=== PATIENT | female | born 1980 | race Two or more races ===

== ENCOUNTER 2025-01-11 16:24 | Inpatient (IN) | payer MEDICAID, SELFPAY ==
[2025-01-11] VITALS (10 sets, daily range): BP systolic 131–171; BP diastolic 78–112; PULSE 79–94; RESP 15–99; TEMP 36.4–36.5; O2SAT 96–99; BMI 31.3
--- NOTE | 2025-01-11 16:33 | PC.NURSE ---
STROKE ALERT INITIATED AND TELESPECIALIST ACTIVATED CONF # [id number]
--- NOTE | 2025-01-11 16:34 | XR_ITS ---
Examination: CTA carotids with intravenous contrast CTA brain, head with intravenous contrast. 2-D sagittal, coronal reconstructions. 3-D reconstructions. Exam date and time: January 11, 2025 at 1555 hrs. Indications: Stroke alert, onset focal neurologic deficit today. CTDI: vol (mGy) 31.5. DLP: (mGycm) 141 Technique: Multiple CTA axial brain, head carotid images post intravenous contrast injection 75 cc, [id number]. 2-D sagittal, coronal reconstructions. 3-D reconstructions, 3-D post processing including vascular maximum intensity projection images. Low dose protocols were performed. One or more of the following dose reduction techniques were used; automated exposure control, adjustment of the mA and/or KV according to patient size, use of iterative reconstruction technique. Findings: No significant common carotid carotid bifurcation or internal carotid artery stenoses Mildly dominant right vertebral artery in the neck with no critical stenoses. No cerebral large vessel arterial occlusions or thrombus Possible 70% stenosis proximal P1 segment left posterior cerebral artery Impression: No significant neck arterial stenoses No cerebral large vessel arterial occlusions. Suspicious for 70% stenosis proximal P1 segment left posterior cerebral artery
--- NOTE | 2025-01-11 16:34 | EKG_ITS ---
[facility] Test Date: 2025-01-11 Pat Name: BELGICA GARRETT Department: Room: - Gender: Female Service Tech: : 1980 Requested By: Kaci Barnes Order Number: [id number] Reading MD: Kaci Barnes Measurements Intervals [place] Rate: 75 P: 43 RI: 168 QRS: 15 QRSD: 89 T: 41 QT: 407 QTc: 456 Interpretive Statements SINUS RHYTHM POSSIBLE LEFT ATRIAL ENLARGEMENT [-0.1mV P-WAVE IN V1/V2] No previous ECG available for comparison /store/S0/[id number].pdf
--- NOTE | 2025-01-11 16:34 | XR_ITS ---
Examination: AP chest single view. Technique: Portable AP upright chest single view Date and time: January 11, 2025, 1737 hrs. Indications: Stroke alert, onset focal neurologic deficit today. Findings: Normal heart size. No aspiration pneumonia. The osseous structures are intact. Impression: No aspiration pneumonia.
--- NOTE | 2025-01-11 16:34 | XR_ITS ---
Examination: CT brain head without contrast. 2-D sagittal coronal reconstructions Date and time of exam:January 11, 2025, 1639 hours INDICATIONS: Stroke alert, slurred speech onset focal neurologic deficit today. CTDI: vol (mGy):49.9 DLP: (mGycm):968 Technique: Multiple CT axial sections of the brain have been obtained, 5 mm slice thickness. Contrast has not been administered. 2-D sagittal, coronal reconstructions have been obtained Low dose protocols were performed. One or more of the following dose reduction techniques were used; automated exposure control, adjustment of the mA and/or KV according to patient size, use of iterative reconstruction technique. Findings: Subtle low density in the left temporal lobe suspicious for early nonhemorrhagic acute infarct in distribution of the left middle cerebral artery. Ventricles are normal in size No mass effect upon the ventricular system No acute hemorrhage Cranial vault is intact IMPRESSION: Suspicious for early acute nonhemorrhagic infarct in left middle cerebral artery distribution
--- NOTE | 2025-01-11 16:35 | PD.EDADULT ---
ED General RME/HPI General Chief complaint: General Adult/Misc Complain Stated complaint: SLURRED SPEECH, CROSSED VISION, LKW 15:50 Time Seen by Provider: 01/11/25 16:34 Arrival date/time: 01/11/25 16:24 RME / HPI RME / HPI narrative: 44-year-old female patient with no past medical history, denies any drug abuse, was brought in by for evaluation regarding sudden onset of slurred speech, crossed eye vision, dizziness, headache, and unstable gait, severity moderate. Last well-known time 3:50 PM today. Patient almost sustained a fall however the was able to catch her. Denies any other complaints. Patient does not take any blood thinner. Related Data Allergies Allergy/AdvReac Type Severity Reaction Status Date / Time No Known Allergies Allergy Verified 01/11/25 17:20 Review of Systems Review of Systems Narrative Review of Systems: Review of system reviewed and within normal limits except mentioned in HPI ED Exam Narrative Physical exam: VITAL SIGNS: Reviewed. GENERAL APPEARANCE: Alert and interactive, follows commands, no acute distress, slight slurring of speech noted, unstable gait HEAD AND FACE: Non-traumatic. ENT: PERRL, pink conjunctivitis, eyelid no trauma, Mucous membrane moist., Full range of motion of the extraocular muscle bilateral NECK: Supple, nontender, no nuchal rigidity. CHEST: No tenderness, no crepitus, no paradoxical movement, no retractions. LUNGS: Clear, well ventilated, symmetric, no rales, no wheezing, no ronchi, no stridor, good breath sounds bilaterally. HEART: Regular rate, regular rhythm, no murmur, no gallops. ABDOMEN: Soft, positive bowel sounds, nondistended, no guarding, nontender, no rebound, no masses, RECTAL: Deferred. GENITAL: Deferred. NEUROLOGICAL: Gross motor function intact sensory function intact, Appropriate for age. MUSCULOSKELETAL: low back nontender, full range of motion. EXTREMITIES: Nontender, full range of motion. SKIN: Color pink, dry, no rash, no lacerations, no abrasions, no contusions. LYMPHATICS: Deferred. Course Quality Measures none Orders Category Date Time Status Bedside Blood Glucose NOW Care 01/11/25 16:34 Active COVID-19 Screening Questionnaire NOW Care 01/11/25 20:04 Active Blue Split Trimmer NOW Care 01/11/25 16:34 Active Continuous Pulse Oximetry NOW Care 01/11/25 16:34 Completed Decision to Admit X1 Care 01/11/25 20:04 Active EKG (ED ONLY) *Do not use* NOW Care 01/11/25 16:34 Completed In and Out Catheter NEEDED Care 01/11/25 16:34 Active Insert IV NOW Care 01/11/25 16:34 Active NIH Stroke Scale now Care 01/11/25 16:34 Active NPO NOW Care 01/11/25 16:34 Active Nurse Swallow Screen x1 Care 01/11/25 16:34 Active Consult to Neurology / Tele-Neurology Routine Cons 01/11/25 16:[address] angio stroke protocol Stat Exams 01/11/25 16:[address] stroke protocol Stat Exams 01/11/25 16:34 Completed EKG (ED Only) Stat Exams 01/11/25 16:34 Draft XR chest 1V portable Stat Exams 01/11/25 16:34 Completed CBC Stat Lab 01/11/25 16:43 Completed Comprehensive Metabolic Panel Stat Lab 01/11/25 16:43 Completed Drug Screen,Urine Stat Lab 01/11/25 16:34 Ordered HCG Titer if Positive Stat Lab 01/11/25 16:43 Completed Magnesium Stat Lab 01/11/25 16:43 Completed Partial Thromboplastin Time Stat Lab 01/11/25 16:43 Completed Prothrombin Time with INR Stat Lab 01/11/25 16:43 Completed Troponin I Stat Lab 01/11/25 16:43 Completed Urinalysis, C/S if Indicated Stat Lab 01/11/25 16:34 Ordered Aspirin Med 01/11/25 17:21 Discontinued 325 mg PO X1 ONE Labetalol IV [Trandate IV] Med 01/11/25 16:34 Active 10 mg IVP Q15M PRN Ondansetron Inj [Zofran Inj] Med 01/11/25 16:34 Active 4 mg IVP Q4HR PRN Oxygen Delivery NOW RT 01/11/25 16:34 Active Vital Signs Vital signs: Vital Signs Pulse Rate 87 01/11/25 16:36 Blood Pressure 171/110 H 01/11/25 16:36 Pulse Oximetry (%) 97 01/11/25 16:36 Oxygen Delivery Method Room Air 01/11/25 16:36 Discharge Plan Plan Patient Disposition: Admit Acute Care w/in Hospital Discharge Disposition comment: Stable Prescriptions/Referrals Referrals: No Primary/Family,Physician [Primary Care Provider] - In 1 week Problem List Clinical Impression: Stroke-like symptoms Patient/Caregiver Discharge Instructions Print Language: Tajik Stand Alone Forms: [facility] Award Info., Patient Portal Info Letter MDM Narrative [facility] hospital course: 44-year-old female patient with no past medical history, denies any drug abuse, was brought in by for evaluation regarding sudden onset of slurred speech, crossed eye vision, dizziness, headache, and unstable gait, severity moderate. Last well-known time 3:50 PM today. Patient almost sustained a fall however the was able to catch her. Denies any other complaints. Patient does not take any blood thinner. Stroke alert was initiated at 4:33 PM. EKG showed sinus rhythm, ventricular to 75 bpm, no ST segment elevation or depression. I spoke with teleneurologist, who recommend TNKase however patient and family refused treatment. Patient was given aspirin 325 mg p.o. x [address] scan of the head came back possible infarct, CT angiogram of the head and neck showed suspicious for P1 segment stenosis. Results discussed with the family and patient. Patient is currently verbalizing significant improvement of symptoms. Spoke with hospitalist who admitted the patient Medication Administration(s) Medication Administration History Labetalol HCl (Labetalol Inj 5 Mg/Ml Vial 20 Ml) 10 mg IVP Q15M PRN PRN Reason: SBP>= 180, DBP >=105 Ondansetron HCl (Ondansetron Inj 2 Mg/Ml Inj 2 Ml) 4 mg IVP Q4HR PRN PRN Reason: NAUSEA OR VOMITING Stop: 02/10/25 16:33 Discontinued Medications Aspirin (Aspirin 325 Mg Tablet) 325 mg PO X1 ONE Stop: 01/11/25 17:22 Last Admin: 01/11/25 17:29 Dose: 325 mg Documented By: CHENG Dispositon Disposition: Admit
[2025-01-11 16:58] LABS: Basophils # (Auto) 0.0 Thou/mm3 (0.0-0.2); Basophils % (Auto) 0 % (0-2.5); Eosinophils # (Auto) 0.1 Thou/mm3 (0.0-0.5); Eosinophils % (Auto) 1 % (0-10); Hematocrit 40.4 % (36.0-46.0); Hemoglobin 13.2 g/dL (12.0-16.0); Immature Granulocytes Auto 0.02 Thou/mm3 (0.00-0.00); Lymphocytes # (Auto) 3.7 Thou/mm3 (1.0-4.8); Lymphocytes % (Auto) 43 % (10-50); Mean Corpuscular HGB Conc 32.7 g/dl (31.0-37.0); Mean Corpuscular Hemoglobin 28.6 pg (25.0-35.0); Mean Corpuscular Volume 87 fL (80-100); Monocytes # (Auto) 0.5 Thou/mm3 (0.0-0.8); Monocytes % (Auto) 6 % (0-12); Neutrophils # (Auto) 4.4 Thou/mm3 (1.8-7.7); Neutrophils % (Auto) 50 % (37-80); Nucleated Red Blood Cell # 0.00 Thou/mm3 (0.00-0.00); Nucleated Red Blood Cell % 0 /100 WBC (0); Platelet Count 449 Thou/mm3 (140-440); RDW Standard Deviation 47.1 fL (36.4-46.3); Red Blood Count 4.62 Miln/mm3 (4.00-5.20); White Blood Count 8.8 Thou/mm3 (3.6-11.0)
--- NOTE | 2025-01-11 17:00 | PC.NURSE ---
DR. DAISY RAMIRES, TELENEUROLOGIST, INFORMED PT THAT SHE IS A CANDIDATE FOR TNK AT THIS TIME; PT REPORTED, I CAN'T FOCUS RIGHT NOW. PT ASKED IF SHE WOULD LIKE ANY FAMILY MEMBER TO TALK TO; PT REPLIED, YES, CALL MY MOM. PT'S MOTHER CALLED AT THIS TIME AND WAS MADE AWARE OF PT'S PLAN OF CARE BY DR. DAISY RAMIRES, WITH PT'S CONSENT. PT'S MOTHER REPLIED, I CAN'T JUST SAY YES TO A MEDICATION FOR HER. I NEED TO TALK TO MY DAUGHTER. PHONE HANDED TO PT; PT SPOKE TO MOM OVER THE PHONE. PT ASKED AGAIN IF SHE WOULD LIKE TO RECEIVE TNK AT THIS TIME. PT REFUSING; PT A&OX4, GCS 15. PROVIDER KRISTOPHER PAULINO MADE AWARE.
[2025-01-11 17:11] LABS: HCG Titer if Positive Negative
[2025-01-11 17:24] LABS: INR 0.9 (0.9-1.3); Partial Thromboplastin Time 20.5 Seconds (22.0-36.0); Prothrombin Time 10.2 Seconds (9.0-12.2)
--- NOTE | 2025-01-11 17:37 | PD.NEUROCONS ---
History of Present Illness Consult Narrative cc:: cc: Meds Home Medications and Allergies Allergies Allergy/AdvReac Type Severity Reaction Status Date / Time No Known Allergies Allergy Verified 01/11/25 17:20 Exam - Neurology Vital Signs Pulse Resp BP Pulse Ox O2 Del Method 79 15 171/110 H 97 Room Air 01/11/25 16:45 01/11/25 16:45 01/11/25 16:36 01/11/25 16:36 01/11/25 16:36 Results Labs 01/11/25 16:43 01/11/25 16:43 Impressions Impression: [facility] Patient Name:???BELGICA GARRETT Date of :???1980 Identification Number:??? Date of Service:???01/11/2025 16:35:22 Diagnosis:?R26.81 - Unsteady gait ?R42 - Dizziness/ Vertigo/ Giddiness Impression: ?Pt is a 44 yo female with no significant past medical history who presents to the ED with dizziness described as difficulty focusing with her vision and unsteady gait since 15:50. NIHSS was 1 for diminished sensation of her right arm and leg although pt was unsteady walking. Since there were no contraindications to iv-thrombolytics, the role of TNK in acute stroke as well as the risks and benefits were discussed with the patient. Pt was extremely anxious and requested to speak to her mother over the phone regarding TNK. Ultimately, after speaking to her mother, the patient declined TNK due to concern about the risks. PT also stated she wanted to go home, but then agreed to stay for an MRI brain to rule out any stroke. CTA head and neck showed no obvious large vessel occlusion and so pt was not a candidate for mechanical thrombectomy, but will follow-up with the final results.? ? ?Recommend stroke work-up with a routine MRI brain without contrast, telemetry, TTE with bubble study (if MRI brain shows a stroke), lipid panel, hemoglobin AIC. ? ?Can start pt on ASA 81 mg daily once the pt passes a dysphagia screen while waiting for work-up to be completed. ? Our recommendations are outlined below. Recommendations: ? Stroke/Telemetry Floor ? Neuro Checks (Q4) ? Bedside Swallow Eval ? DVT Prophylaxis ? IV Fluids, Normal Saline ? Head of Bed 30 Degrees ? Euglycemia and Avoid Hyperthermia (PRN Acetaminophen) ? Initiate or continue Aspirin 81 MG daily ?MRI brain without contrast ?TTE with bubble study (If MRI brain shows a stroke) ?Lipid panel ?Hemoglobin AIC?PT/OT Sign Out: ? Discussed with Emergency Department Provider Advanced Imaging: CTA Head and Neck Completed. LVO:No Patient is not a candidate for DANIELLE Metrics: Last Known Well: 01/11/2025 13:50:00 Dispatch Time: 01/11/2025 16:35:22 Arrival Time: 01/11/2025 16:34:00 Initial Response Time: 01/11/2025 16:39:15Symptoms: Dizziness. . Initial patient interaction: 01/11/2025 16:41:14 NIHSS Assessment Completed: 01/11/2025 16:47:22Patient is not a candidate for Thrombolytic. Thrombolytic Medical Decision: 01/11/2025 17:04:30Patient was not deemed candidate for Thrombolytic because of following reasons: Patient/Family declined . CT Head: I personally reviewed all the CT images that were available to me and it showed: No acute ischemic change, no ICH Primary Provider Notified of Diagnostic Impression and Management Plan on: 01/11/2025 17:21:50 History of Present Illness:Patient is a 44 year old Female. Patient was brought by private transportation with symptoms of Dizziness. . Pt is a 44 yo female with no significant past medical history who presents to the ED with dizziness. PT states that she was driving at around 15:50 when she suddenly felt dizzy like she could not focus her eyes. She denies any actual double vision, blurred vision or spinning sensation. She felt unsteady walking but had no unilateral wekaness or numbness. No nausea. No change in speech Past Medical History: ?There is no history of Hypertension ?There is no history of Diabetes Mellitus ?There is no history of Hyperlipidemia ?There is no history of Atrial Fibrillation ?There is no history of Coronary Artery Disease ?There is no history of Stroke Medications: No Anticoagulant use? No Antiplatelet use Reviewed EMR for current medications Allergies:? NKDA Social History: Smoking: No Family History: There is no family history of premature cerebrovascular disease pertinent to this consultation ROS : 14 Points Review of Systems was performed and was negative except mentioned in HPI. Past Surgical History: There Is No Surgical History Contributory To Today?s Visit Examination: BP(152/95),?Pulse(89),?Blood Glucose(127) 1A: Level of Consciousness - Alert; keenly responsive?+ 0 1B: Ask Month and Age - Both Questions Right?+ 0 1C: Blink Eyes & Squeeze Hands - Performs Both Tasks?+ 0 2: Test Horizontal Extraocular Movements - Normal?+ 0 3: Test Visual Ricci - No Visual Loss?+ 0 4: Test Facial Palsy (Use Grimace if Obtunded) - Normal symmetry?+ 0 5A: Test Left Arm Motor Drift - No Drift for 10 Seconds?+ 0 5B: Test Right Arm Motor Drift - No Drift for 10 Seconds?+ 0 6A: Test Left Leg Motor Drift - No Drift for 5 Seconds?+ 0 6B: Test Right Leg Motor Drift - No Drift for 5 Seconds?+ 0 7: Test Limb Ataxia (FNF/Heel-Greco) - No Ataxia?+ 0 8: Test Sensation - Mild-Moderate Loss: Less Sharp/More Dull?+ 1 9: Test Language/Aphasia - Normal; No aphasia?+ 0 10: Test Dysarthria - Normal?+ 0 11: Test Extinction/Inattention - No abnormality?+ 0 NIHSS Score:?1 NIHSS Free Text :?NIHSS was 1 for diminished sensation of her right arm and leg. ?Pt was able to from the wheelchair tot he stretcher but was unsteady walking. ?No nystagmus, extraocular movements were intact. Pre-Morbid Modified [place] Scale: 0 Points = No symptoms at all Spoke with :?FANTA Duran This consult was conducted in real time using interactive audio and video technology. Patient was informed of the technology being used for this visit and agreed to proceed. Patient located in hospital and provider located at home/office setting. Patient is being evaluated for possible acute neurologic impairment and high probability of imminent or life-threatening deterioration. I spent total of 41 minutes providing care to this patient, including time for face to face visit via telemedicine, review of medical records, imaging studies and discussion of findings with providers, the patient and/or family. Dr Reanna Rico [facility] For Inpatient follow-up with [facility] physician please call [facility] at . As we are not an outpatient service for any post hospital discharge needs please contact the hospital for assistance. If you have any questions for the [facility] physicians or need to reconsult for clinical or diagnostic changes please contact us via [facility] at . Signature :Eric Rico
[2025-01-11 17:59] LABS: Alanine Aminotransferase 16 U/L (10-49); Albumin, Serum 4.6 gm/dL (3.5-5.0); Albumin/Globulin Ratio 1.9 (1.2-2.2); Alkaline Phosphatase 78 U/L (46-116); Anion Gap 10 (7-16); Aspartate Amino Transferase 17 U/L (0-34); BUN/Creatinine Ratio 11 Ratio (12-20); Bilirubin,Total 0.3 mg/dL (0.3-1.2); Blood Urea Nitrogen 9 mg/dL (9-23); Calcium 9.3 mg/dL (8.3-10.6); Calcium (Corrected) 9.3 mg/dL (8.5-10.1); Carbon Dioxide 27.1 mMol/L (20.0-31.0); Chloride 106 mMol/L (98-107); Creatinine (Component) 0.8 mg/dL (0.6-1.3); Estimated Creatinine Clearance 100.3 mL/min (>60); Globulin 2.4 gm/dL (2.3-3.5); Glucose 124 mg/dL (74-106); Magnesium 2.5 mg/dL (1.6-2.6); Osmolality,Calculated 284 (275-295); Potassium 3.4 mMol/L (3.4-5.1); Sodium 143 mMol/L (136-145); Total Protein 7.0 gm/dL (5.7-8.2); Troponin I < 0.002 ng/mL (0.0-0.045); eGFR > 60 See Note
--- NOTE | 2025-01-11 20:44 | ECHO_ITS ---
Transthoracic Echo Report Ht (in): 66 Wt (lb): 194 Exam Location: Echo Lab Status: Emergency Canary Raiser: Richa Fay Indications: Procedure Performed: BP: 139 / 98 HR: 83 MEASUREMENTS (Male / Female) Normal Values 2D ECHO LV Diastolic Diameter PLAX 4.1 cm 4.2 - 5.9 / 3.9 - 5.3 cm LV Systolic Diameter PLAX 2.6 cm IVS Diastolic Thickness 1.0 cm 0.6 - 1.0 / 0.6 - 0.9 cm LVPW Diastolic Thickness 1.0 cm 0.6 - 1.0 / 0.6 - 0.9 cm LV Relative Wall Thickness 0.5 LVOT Diameter 1.9 cm LA Volume Index 23.0 cm?/m? 16 - 28 cm?/m? Ascending Aorta Diameter 3.0 cm M-MODE AV Cusp Separation MM 1.6 cm DOPPLER AV Peak Velocity 144.0 cm/s AV Peak Gradient 8.3 mmHg AV Mean Gradient 5.0 mmHg AV Velocity Time Integral 28.8 cm LVOT Peak Velocity 119.0 cm/s LVOT Peak Gradient 5.7 mmHg LVOT Velocity Time Integral 22.9 cm LVOT Cardiac Index 2624.6 cm?/min?m? AV Area Cont Eq vti 2.3 cm? AV Area Cont Eq pk 2.3 cm? MV Area PHT 4.6 cm? Mitral E Point Velocity 97.0 cm/s Mitral A Point Velocity 106.0 cm/s Mitral E to A Ratio 0.9 LV E' Lateral Velocity 9.4 cm/s Mitral E to LV E' Lateral Ratio 10.4 LV E' Septal Velocity 7.8 cm/s Mitral E to LV E' Septal Ratio 12.4 TR Peak Velocity 191.0 cm/s TR Peak Gradient 14.6 mmHg PV Peak Velocity 104.0 cm/s PV Peak Gradient 4.3 mmHg FINDINGS Left Ventricle Normal left ventricular size, wall thickness, systolic function with no obvious regional wall motion abnormalities. Normal left ventricular diastolic filling pattern for age. The ejection fraction is visually estimated at 60-65 %. Right Ventricle Normal Right ventricular size and function. Left Atrium The left atrium is normal by two-dimensional, color flow and Doppler imaging with no structural abnormalities, no thrombus formation present. Right Atrium The right atrium is normal by two-dimensional imaging, color flow and Doppler imaging with no structural abnormalities, no thrombus formation present. Atrial Septum No patent foramen ovale demonstrated by agitated saline injection. Aorta The aorta is normal by two-dimensional, color flow and Doppler interrogation. Mitral Valve The mitral valve is normal by two-dimensional, color flow and Doppler interrogation. There is no significant mitral valve regurgitation, stenosis or prolapse. Aortic Valve The aortic valve is trileaflet and normal by two-dimensional, color flow and Doppler interrogation. There is no significant aortic valve regurgitation. Tricuspid Valve The tricuspid valve is normal by two-dimensional, color flow and Doppler interrogation. There is trace tricuspid valve regurgitation. Pulmonic Valve The pulmonic valve is not well visualized. There is no significant pulmonic valve regurgitation. Vessels The pulmonary artery appears normal. The inferior vena cava pulmonary and hepatic veins appear normal. Pericardium The pericardium is normal by two-dimensional imaging. There is no significant pericardial effusion. CONCLUSIONS Indication: stroke/bubble study Normal left ventricular size and function. Approximate ejection fraction is 60- 65%. Normal Right ventricular size and function. No patent foramen ovale demonstrated by agitated saline injection. Trace ELLEN Masters (Electronically Signed) Final Date: 12 January 2025 17:43
--- NOTE | 2025-01-11 21:15 | ESHP_ITS ---
<Statement entered by Korey Franks MD - 01/12/25 02:42> I have discussed and was present for the essential components of the history, physical examination, diagnosis, and treatment plan with the resident. I agree with the patient's care as documented by the resident and amended herein by me. Korey Franks MD FACP. Documentation for date of: 01/11/25 HPI History of Present Illness Chief complaint: Dizziness, slurred speech, visual disturbance History of present illness: 44-year-old female with no significant past medical history presented after a sudden episode while driving at 15:50. She reported sudden dizziness, slurred speech, visual disturbance described as her ?eyes bouncing around,? associated with clamminess, sweating, and feeling pale. She pulled over and her boyfriend drove; they later stopped at a store where she continued to feel dizzy and unsteady, nearly collapsing but denied loss of consciousness or fainting as her boyfriend caught her. Symptoms partially improved but she continues to have difficulty focusing her vision, headache, and left-sided decreased sensation with mild facial droop. She denies chest pain, weakness, syncope, or seizure activity. She is not on medications or blood thinners and declined TNK after risks/benefits were discussed. ED Course: Stroke alert activated on arrival. CT head showed no acute hemorrhage, possible subtle infarct in left MCA distribution. CTA head/neck showed no LVO, with 70% stenosis of left [employer] (P1). Neurology consulted, recommended TNK, but patient declined after discussion. Given aspirin 325 mg PO. Vitals notable for hypertension (171/110), otherwise stable. Admitted to stroke/telemetry for further work-up. ROS * Neuro: + dizziness, headache, visual disturbance, slurred speech, left-sided sensory change. No loss of consciousness, seizures, or focal weakness. * Cardio: No chest pain, palpitations, or syncope. * Pulm: Mild shortness of breath during episode, now resolved. * GI: No nausea, vomiting, abdominal pain. * : No dysuria. * General: [place] clammy and sweaty at onset, no fevers or chills. PMH: * None reported PSH: * 3 prior C-sections Medications: * None prescribed; occasional OTC vitamin gummies Allergies: * NKDA Family History: * Noncontributory for stroke/ME per patient Social History: * Vapes regularly * Denies alcohol use except rare, no illicit drugs * Lives with boyfriend, independent at baseline Exam Vital Signs Temp Pulse Resp BP Pulse Ox O2 Del Method 97.7 F 91 16 156/112 H 97 Room Air 01/11/25 18:39 01/11/25 21:08 01/11/25 21:08 01/11/25 21:08 01/11/25 21:08 01/11/25 21:08 Narrative Exam Gen: Alert, conversant, mild distress due to dizziness Neuro: Mild slurred speech. Cranial nerves: slight left facial droop, decreased sensation left face; strength 5/5 throughout; sensation reduced LUE/LLE; coordination intact (FNF, heel-denson normal), gait deferred. HEENT: PERRL, EOMI, mucous membranes moist CV: RRR, grade II/ systolic murmur, no gallops Pulm: Clear to auscultation bilaterally Abd: Soft, nontender, nondistended Ext: No edema, full ROM Skin: Warm, dry Results: Labs 01/11/25 16:43 01/11/25 16:43 Labs: Short CBC 01/11/25 Range/Units 16:43 WBC 8.8 (3.6-11.0) Thou/mm3 Hgb 13.2 (12.0-16.0) g/dL Hct 40.4 (36.0-46.0) % Plt Count 449 H (140-440) Thou/mm3 BMP 01/11/25 16:43 Sodium 143 Potassium 3.4 Chloride 106 Carbon Dioxide 27.1 BUN 9 Creatinine 0.8 Glucose 124 H Calcium 9.3 Cardiac Enzymes 01/11/25 Range/Units 16:43 Troponin I < 0.002 (0.0-0.045) ng/mL Liver Function 01/11/25 Range/Units 16:43 Total Bilirubin 0.3 (0.3-1.2) mg/dL AST 17 (0-34) U/L ALT 16 (10-49) U/L Alkaline Phosphatase 78 (46-116) U/L Albumin 4.6 (3.5-5.0) gm/dL Quality Measures Quality Measures VTE prophylaxis Medications Home Medications and Allergies Allergies Allergy/AdvReac Type Severity Reaction Status Date / Time No Known Allergies Allergy Verified 01/11/25 17:20 Visit Medications Acetaminophen (Acetaminophen 325 Mg Tablet) 650 mg PO Q6H PRN PRN Reason: Fever >100.4 Stop: 02/10/25 20:42 Acetaminophen (Acetaminophen 325 Mg Tablet) 650 mg PO Q6H PRN PRN Reason: PAIN SCALE 1-3 (mild Stop: 02/10/25 20:42 Aspirin (Aspirin Ec 81 Mg Tabec) 81 mg PO QDAY [facility] Stop: 02/11/25 08:59 Atorvastatin Calcium (Atorvastatin Calcium 20 Mg Tablet) 80 mg PO HS [facility] Stop: 02/10/25 21:14 Labetalol HCl (Labetalol Inj 5 Mg/Ml Vial 20 Ml) 10 mg IVP Q15M PRN PRN Reason: SBP>= 180, DBP >=105 Morphine Sulfate (Morphine Sulf Inj 4 Mg/Ml Vial) 1 mg IVP Q4HR PRN PRN Reason: PAIN SCALE 7-10 (Severe Stop: 01/16/25 20:42 Ondansetron HCl (Ondansetron Inj 2 Mg/Ml Inj 2 Ml) 4 mg IVP Q6H PRN; Protocol PRN Reason: NAUSEA OR VOMITING Stop: 02/10/25 20:42 Oxycodone/Acetaminophen (Oxycodone/Apap 5/325 Tablet) 1 tab PO Q6H PRN PRN Reason: PAIN SCALE 4-6 (Moderate Stop: 01/16/25 20:42 Pantoprazole Sodium (Pantoprazole 40 Mg Tablet) 40 mg PO QDAY [facility] Stop: 02/11/25 08:59 Sennosides (Senna Tablet) 1 tab PO QDAY PRN; Protocol PRN Reason: constipation Stop: 02/10/25 20:42 Discontinued Medications Aspirin (Aspirin 325 Mg Tablet) 325 mg PO X1 ONE Stop: 01/11/25 17:22 Last Admin: 01/11/25 17:29 Dose: 325 mg Assessment & Plan Plan 44F with no PMH, admitted for acute neurologic symptoms (dizziness, slurred speech, visual disturbance, sensory loss) concerning for acute ischemic stroke vs TIA, declined TNK, imaging without LVO, with incidental 70% L [employer] P1 stenosis. Now admitted for stroke work-up and secondary prevention. # Acute ischemic stroke Patient with sudden neurologic symptoms (dizziness, slurred speech, visual disturbance, sensory deficit, mild facial droop) Risk factors including possible undiagnosed hypertension and vaping history. CT: possible subtle L MCA infarct CTA: no LVO, 70% L [employer] stenosis NIHSS initially 1 but later with mild facial droop and sensory loss. TNK discussed with neurology but patient declined after counseling. Currently stable on exam with preserved strength but persistent sensory changes and dizziness. Plan: * Admit to Stroke/Telemetry floor * Neuro checks q4h, HOB 30? * ASA 81 mg PO daily (s/p ASA 325 in ED) * Atorvastatin 80 mg nightly * Urine tox pending * MRI brain w/o contrast * TTE with bubble study * PT/OT, speech/swallow eval * Pending MRI and neurology recs # Essential hypertension, newly noted BP up to 171/110 on arrival. No prior diagnosis, not on meds. Plan: * Permissive hypertension for first 24h post-stroke * Outpatient follow-up for possible chronic HTN if persistent # Hypokalemia, mild K 3.4 Plan: * Replete with 40 KCl PO to >4.0 * Recheck in AM # Tobacco/vape use Patient vapes regularly but denies cigarette use Plan: * Counseling on cessation * Consider nicotine patch if cravings during hospitalization Health Maintenance Disposition: Admit to stroke/telemetry for monitoring and workup Feeding: NPO until bedside swallow eval complete, then diet Thromboprophylaxis: SQ heparin 5,000 U q12h GI prophylaxis: PPI Code status: Full code ----- Plan discussed with attending physician Dr. Tiny Kelly MD PGY-1 Internal Medicine
[2025-01-11 21:39] LABS: Troponin I < 0.002 ng/mL (0.0-0.045)
[2025-01-11] MEDS: ATORVASTATIN CALCIUM 20 MG TABLET 80 MG PO (22:01)
[2025-01-11] MEDS: SODIUM CHLORIDE 0.9% 1000 ML 1,000 ML 80 ML IV (22:38)
--- NOTE | 2025-01-11 22:38 | PC.NURSE ---
REPORT GIVEN TO MAGALYS BARTON AT TELE.
[2025-01-12] VITALS (9 sets, daily range): BP systolic 120–144; BP diastolic 81–101; PULSE 71–97; RESP 12–98; TEMP 36.2–36.7; O2SAT 96–99; BMI 30.4
--- NOTE | 2025-01-12 | XR_ITS ---
Examinations: MRI Brain without intravenous contrast. MRI brain with intravenous contrast MRA brain with intravenous contrast. MRA brain without intravenous contrast MRA neck with intravenous contrast Date and time of exam: January 12, 2025 1240 hours INDICATIONS: Stroke alert January 11, 2025, slurred speech dizziness and visual disturbances focal neurologic deficit Technique: Multiple axial and sagittal images of the brain have been obtained Siemens high-resolution 1.5 Britney short bore scanner is utilized. Sagittal sections, T1-weighted, TR 500, TE 14 Axial sections proton density and T2-weighted, TR 3,000, TE 34, TR 3,000, TE 91 Inversion recovery axial images, TR 9,260, TE 111, TI 2,500 Diffusion weighted images, axial sections, TR 4,800, TE 128, B value 1,000 Axial sections, ADC map, TR 4,800, TE 128. Contrast images have been obtained post intravenous 19 cc Gadolinium. T1-weighted axial and coronal images post contrast have been obtained. Angiographic images of neck and brain are obtained pre and post contrast. 3-D post processing performed, including brain, extracranial neck arterial maximum intensity projections Findings: Sellaturcica is not enlarged. The optic chiasm and infundibular stalk are not remarkable. Prepontine and interpeduncular cisterns are not enlarged. No localized enlargement of the medulla or stef. Fourth ventricle and cerebellar tonsils normal in position. Subacute hemorrhage is not seen. Fourth ventricle is midline. Mass in the cerebellopontine angle region is not evident. 7th and 8th nerve complexes exhibits symmetry. Globes are symmetrical with no retro-orbital mass. Increased white matter signal not seen Diffusion-weighted images demonstrateno focus of restricted diffusion. Mass-effect upon the ventricular system is not identified. Abnormal contrast enhancement is no abnormal enhancement. MRA brain carotid images no carotid stenoses, no cerebral large vessel occlusions Impression: Negative for acute hemorrhage mass effect or midline shift No acute infarct No MR findings diagnostic for demyelinating disease No significant carotid stenoses No cerebral large vessel arterial occlusions
[2025-01-12 05:54] LABS: Basophils # (Auto) 0.0 Thou/mm3 (0.0-0.2); Basophils % (Auto) 0 % (0-2.5); Eosinophils # (Auto) 0.1 Thou/mm3 (0.0-0.5); Eosinophils % (Auto) 1 % (0-10); Hematocrit 37.5 % (36.0-46.0); Hemoglobin 12.1 g/dL (12.0-16.0); Immature Granulocytes Auto 0.02 Thou/mm3 (0.00-0.00); Lymphocytes # (Auto) 2.8 Thou/mm3 (1.0-4.8); Lymphocytes % (Auto) 36 % (10-50); Mean Corpuscular HGB Conc 32.3 g/dl (31.0-37.0); Mean Corpuscular Hemoglobin 28.6 pg (25.0-35.0); Mean Corpuscular Volume 89 fL (80-100); Monocytes # (Auto) 0.5 Thou/mm3 (0.0-0.8); Monocytes % (Auto) 7 % (0-12); Neutrophils # (Auto) 4.2 Thou/mm3 (1.8-7.7); Neutrophils % (Auto) 55 % (37-80); Nucleated Red Blood Cell # 0.00 Thou/mm3 (0.00-0.00); Nucleated Red Blood Cell % 0 /100 WBC (0); Platelet Count 393 Thou/mm3 (140-440); RDW Standard Deviation 48.0 fL (36.4-46.3); Red Blood Count 4.23 Miln/mm3 (4.00-5.20); White Blood Count 7.6 Thou/mm3 (3.6-11.0)
[2025-01-12 05:56] LABS: INR 1.0 (0.9-1.3); Prothrombin Time 10.9 Seconds (9.0-12.2)
[2025-01-12 06:17] LABS: Glucose Estimated Average 103 mg/dL (80-131); Hemoglobin A1C 5.2 % Hgb (4.8-6.0)
[2025-01-12 06:34] LABS: Alanine Aminotransferase 13 U/L (10-49); Albumin, Serum 4.1 gm/dL (3.5-5.0); Albumin/Globulin Ratio 2.0 (1.2-2.2); Alkaline Phosphatase 66 U/L (46-116); Anion Gap 10 (7-16); Aspartate Amino Transferase 13 U/L (0-34); BUN/Creatinine Ratio 9 Ratio (12-20); Bilirubin,Total 0.6 mg/dL (0.3-1.2); Blood Urea Nitrogen 6 mg/dL (9-23); Calcium 8.9 mg/dL (8.3-10.6); Calcium (Corrected) 8.9 mg/dL (8.5-10.1); Carbon Dioxide 25.5 mMol/L (20.0-31.0); Cardiac Risk Estimate 1.8 RATIO (3.7-5.6); Chloride 106 mMol/L (98-107); Cholesterol 136 mg/dL (132-200); Creatinine (Component) 0.7 mg/dL (0.6-1.3); Estimated Creatinine Clearance 113.1 mL/min (>60); Globulin 2.1 gm/dL (2.3-3.5); Glucose 84 mg/dL (74-106); HDL Cholesterol 75 mg/dL (40-60); LDL Cholesterol,Calculated 51 mg/dL (0-130); Magnesium 2.2 mg/dL (1.6-2.6); Osmolality,Calculated 277 (275-295); Phosphorous 3.4 mg/dL (2.4-5.1); Potassium 4.0 mMol/L (3.4-5.1); Sodium 141 mMol/L (136-145); Total Protein 6.2 gm/dL (5.7-8.2); Triglycerides 48 mg/dL (30-150); eGFR > 60 See Note
[2025-01-12 06:51] LABS: Thyroid Stimulating Hormone 1.23 uIU/mL (0.55-4.78)
[2025-01-12] MEDS: HEPARIN SOD INJ 5000 UNIT/ML VIAL SC ×2 (08:54→20:44)
[2025-01-12] MEDS: ASPIRIN EC 81 MG TABEC PO (08:54)
[2025-01-12] MEDS: PANTOPRAZOLE 40 MG TABLET PO (08:54)
--- NOTE | 2025-01-12 13:05 | PC.PT ---
PT eval only. Patient is xI with bed mobility, transfers, and ambulation with no AD. No further needs at this time. Patient is safe to ambulate to the bathroom and in the halls with no AD and no staff. RN made aware.
--- NOTE | 2025-01-12 14:02 | PD.RESCONSUL ---
HPI Data of Consult Requesting Physician: Julian Rodriguez MD Admitting Provider: Korey Franks MD Attending Provider: Julian Rodriguez MD Primary Care Provider: Physician No Primary/Family Consult Narrative Reason for consult: stroke w/up History of present illness: This 44-year-old female with no significant past medical history presented after a sudden episode while driving at 15:50. She reported sudden dizziness, slurred speech, visual disturbance described as her ?eyes bouncing around,? associated with clamminess, sweating, and feeling pale. She pulled over and her boyfriend drove; they later stopped at a store where she continued to feel dizzy and unsteady, nearly collapsing but denied loss of consciousness or fainting as her boyfriend caught her. Symptoms partially improved but she continues to have difficulty focusing her vision, headache, and left-sided decreased sensation with mild facial droop. She denies chest pain, weakness, syncope, or seizure activity. She is not on medications or blood thinners and declined TNK after risks/benefits were discussed. ED Course: Stroke alert activated on arrival. CT head showed no acute hemorrhage, possible subtle infarct in left MCA distribution. CTA head/neck showed no LVO, with 70% stenosis of left [employer]EV[employer]ANCE (P1). Neurology consulted, recommended TNK, but patient declined after discussion. Given aspirin 325 mg PO. Vitals notable for hypertension (171/110), otherwise stable. Admitted to stroke/telemetry for further work-up. PMH:None reported PSH:3 prior C-sections Social History: Vapes regularly. Denies alcohol use except rare, no illicit drugs. Lives with boyfriend, independent at baseline Allergies: NKDA Family History: Noncontributory for stroke/IN per patient Medications: None prescribed; occasional OTC vitamin gummies Patient was seen and examined at the bedside. No acute overnight events reported. Patient's symptoms seems to be resolving. She presented with sudden dizziness, slurred speech and visual disturbance associated with sweating. Her symptoms have resolved. MRI brain showed no acute findings of stroke. Echocardiogram is unremarkable. Patient can be safely discharged from neurology standpoint.No need of aspirin or statin therapy. Stroke was ruled out and most likely symptoms are attributed from stress related cc:: cc: Julian Rodriguez MD Review of Systems Review of Systems Systems Reviewed: All systems reviewed, normal except as documented Exam Vital Signs Temp Pulse Resp BP Pulse Ox O2 Del Method 97.2 F 97 24 H 143/100 H 97 Room Air 01/12/25 12:00 01/12/25 12:00 01/12/25 12:00 01/12/25 12:00 01/12/25 12:00 01/12/25 12:00 Narrative Exam GENERAL APPEARANCE: AxOx4, generally well-appearing female in acute distress. HEENT: NC, AT. MMM. EOMI, clear conjunctiva, oropharynx clear. NECK: Supple without lymphadenopathy. No stiffness or restricted ROM. HEART: Regular rate and regular rhythm, normal S1/S2, no m/r/g LUNGS: CTAB, moving air well. No crackles or wheezes are heard. ABDOMEN: Soft, nontender, nondistended with good bowel sounds heard. BACK: No CVAT, no obvious deformity. EXTREMITIES: Without cyanosis, clubbing or edema. NEUROLOGICAL: Grossly nonfocal. Alert and oriented, moving all 4 extremities. CN not formally tested but appear grossly intact. Observed to ambulate with normal gait. Skin: Warm and dry without any rash. Psych: Appropriate mood and affect Results Labs 01/12/25 04:21 01/12/25 04:21 Labs: Short CBC 01/11/25 01/12/25 Range/Units 16:43 04:21 WBC 8.8 7.6 (3.6-11.0) Thou/mm3 Hgb 13.2 12.1 (12.0-16.0) g/dL Hct 40.4 37.5 (36.0-46.0) % Plt Count 449 H 393 D (140-440) Thou/mm3 BMP 01/11/25 01/12/25 16:43 04:21 Sodium 143 141 Potassium 3.4 4.0 D Chloride 106 106 Carbon Dioxide 27.1 25.5 BUN 9 6 L Creatinine 0.8 0.7 Glucose 124 H 84 Calcium 9.3 8.9 Cardiac Enzymes 01/11/25 01/11/25 Range/Units 16:43 20:58 Troponin I < 0.002 < 0.002 (0.0-0.045) ng/mL Liver Function 01/11/25 01/12/25 Range/Units 16:43 04:21 Total Bilirubin 0.3 0.6 (0.3-1.2) mg/dL AST 17 13 (0-34) U/L ALT 16 13 (10-49) U/L Alkaline Phosphatase 78 66 (46-116) U/L Albumin 4.6 4.1 D (3.5-5.0) gm/dL Quality Measures Quality Measures VTE prophylaxis (Heparin subcut) Medications Home Medications and Allergies Allergies Allergy/AdvReac Type Severity Reaction Status Date / Time No Known Allergies Allergy Verified 01/11/25 17:20 Visit Medications Acetaminophen (Acetaminophen 325 Mg Tablet) 650 mg PO Q6H PRN PRN Reason: Fever >100.4 Stop: 02/10/25 20:42 Acetaminophen (Acetaminophen 325 Mg Tablet) 650 mg PO Q6H PRN PRN Reason: PAIN SCALE 1-3 (mild Stop: 02/10/25 20:42 Aspirin (Aspirin Ec 81 Mg Tabec) 81 mg PO QDAY [facility] Stop: 02/11/25 08:59 Last Admin: 01/12/25 08:54 Dose: 81 mg Atorvastatin Calcium (Atorvastatin Calcium 20 Mg Tablet) 80 mg PO HS [facility] Stop: 02/10/25 21:14 Last Admin: 01/11/25 22:01 Dose: 80 mg Heparin Sodium (Porcine) (Heparin Sod Inj 5000 Unit/Ml Vial) 5,000 unit SC Q12HR [facility] Stop: 01/26/25 08:59 Last Admin: 01/12/25 08:54 Dose: 5,000 unit Labetalol HCl (Labetalol Inj 5 Mg/Ml Vial 20 Ml) 10 mg IVP Q15M PRN PRN Reason: SBP>= 180, DBP >=105 Morphine Sulfate (Morphine Sulf Inj 4 Mg/Ml Vial) 1 mg IVP Q4HR PRN PRN Reason: PAIN SCALE 7-10 (Severe Stop: 01/16/25 20:42 Ondansetron HCl (Ondansetron Inj 2 Mg/Ml Inj 2 Ml) 4 mg IVP Q6H PRN; Protocol PRN Reason: NAUSEA OR VOMITING Stop: 02/10/25 20:42 Oxycodone/Acetaminophen (Oxycodone/Apap 5/325 Tablet) 1 tab PO Q6H PRN PRN Reason: PAIN SCALE 4-6 (Moderate Stop: 01/16/25 20:42 Pantoprazole Sodium (Pantoprazole 40 Mg Tablet) 40 mg PO QDAY [facility] Stop: 02/11/25 08:59 Last Admin: 01/12/25 08:54 Dose: 40 mg Sennosides (Senna Tablet) 1 tab PO QDAY PRN; Protocol PRN Reason: constipation Stop: 02/10/25 20:42 Discontinued Medications Aspirin (Aspirin 325 Mg Tablet) 325 mg PO X1 ONE Stop: 01/11/25 17:22 Last Admin: 01/11/25 17:29 Dose: 325 mg Sodium Chloride (Ns) 1,000 mls @ 80 mls/hr IV .[id number] [facility] Stop: 01/12/25 10:14 Last Admin: 01/11/25 22:38 Dose: 80 mls/hr Potassium Chloride (Potassium Chloride 20 Meq Tabcr) 40 meq PO X1 ONE Stop: 01/11/25 21:39 Last Admin: 01/11/25 22:38 Dose: 40 meq Assessment & Plan Plan This 44F with no PMH, admitted for acute neurologic symptoms (dizziness, slurred speech, visual disturbance, sensory loss) concerning for acute ischemic stroke vs TIA, declined TNK, imaging without LVO, with incidental 70% L [employer] P1 stenosis. Now admitted for stroke work-up and secondary prevention. # Acute ischemic stroke, ruled out #Possible stress-related Patient with sudden neurologic symptoms (dizziness, slurred speech, visual disturbance, sensory deficit, mild facial droop) Risk factors including possible undiagnosed hypertension and vaping history. CT: possible subtle L MCA infarct CTA: no LVO, 70% L [employer] stenosis NIHSS initially 1 but later with mild facial droop and sensory loss. TNK discussed with neurology but patient declined after counseling. Currently stable on exam with preserved strength but persistent sensory changes and dizziness. (s/p ASA 325 in ED) MRI brain showed no acute findings of stroke. Plan: Patient can be safely discharged from neurology standpoint. No need of aspirin or statin therapy. Stroke was ruled out and most likely symptoms are attributed from stress related # Essential hypertension, newly noted # Hypokalemia, mild # Tobacco/vape use Rest of the management per primary care team. Plan of care discussed with Neurologist, Dr Celi Sanchez MD PGY-3
--- NOTE | 2025-01-12 14:59 | PC.SS ---
Patient is alert/oriented. Patient was able to verify demographics. Patient was admitted for a stroke. No deficits. PT called to notify patient is independent with no needs. Patient drives herself to appointments. Patient states she does not have a PCP. Her last visit was a year ago at [facility]. Pharmacy: [facility] pharmacy in [place]. Discharge plan is to return home. Patient is pending an echo and MRI. Alt medical decision maker: Mother, Jessica Jean Baptiste, d/c home. No needs.
--- NOTE | 2025-01-12 15:37 | ESPR_ITS ---
<Statement entered by Julian Rodriguez MD - 01/23/25 09:07> I reviewed above note and agree with findings and plans. I have also personally examined the patient with medicine team and went over assessment and plan with medical team including real estate intern and resident physician. <Statement entered by Norman Kramer MD - 01/12/25 16:26> Overnight admission. Seen and examined at bedside and mother states that patient had an episode of urinary incontinence and does have some left-sided paresthesia. He was cleared by speech, MRI brain negative for infarct, echo taken and pending read. Vital signs stable, CMP unremarkable, CHEM panel unremarkable. Otherwise, will follow-up neurology recommendations and anticipate discharge within next 24 to 48 hours. ----- Note reviewed and agree with care plan as documented. Please refer to the note below for further details. Plan discussed with attending physician Dr. Michael Kramer MD PGY-2 Internal Medicine Documentation for date of: 01/12/25 Subjective Subjective Interval history: Patient was seen at bedside and evaluated. She was sitting comfortably in bed and eating breakfast tolerating intake well and was able to keep it down. Presenting symptoms of dizziness, slurred speech, visual disturbance which was described by the patient as eyes bouncing about and inability to focus gaze had improved. Patient still complaining of left-sided sensory deficit more left- sided than on the right, although improved from the time of presentation. patient was accompanied by boyfriend and mother in the room. No other complaints. Exam Vital Signs Temp Pulse Resp BP Pulse Ox O2 Del Method 97.2 F 97 24 H 143/100 H 97 Room Air 01/12/25 12:00 01/12/25 12:00 01/12/25 12:00 01/12/25 12:00 01/12/25 12:01/12/25 12:00 Narrative Exam Gen: Alert, conversant, mild distress due to dizziness Neuro: Mild slurred speech. Cranial nerves: slight left facial droop, decreased sensation left face; strength 5/5 throughout; sensation reduced LUE/LLE; coordination intact (FNF, heel-denson normal), gait deferred. HEENT: PERRL, EOMI, mucous membranes moist CV: RRR, grade II/ systolic murmur, no gallops Pulm: Clear to auscultation bilaterally Abd: Soft, nontender, nondistended Ext: No edema, full ROM Skin: Warm, dry Objective Labs 01/12/25 04:21 01/12/25 04:21 Labs: Laboratory Results - last 24 hr 01/11/25 01/11/25 01/12/25 16:43 20:58 04:21 WBC 8.8 7.6 RBC 4.62 4.23 Hgb 13.2 12.1 Hct 40.4 37.5 MCV 87 89 MCH 28.6 28.6 MCHC 32.7 32.3 RDW Std Deviation 47.1 H 48.0 H Plt Count 449 H 393 D Neut % (Auto) 50 55 Lymph % (Auto) 43 36 [place] % (Auto) 6 7 Eos % (Auto) 1 1 Baso % (Auto) 0 0 Neut # (Auto) 4.4 4.2 Lymph # (Auto) 3.7 2.8 [place] # (Auto) 0.5 0.5 Eos # (Auto) 0.1 0.1 Baso # (Auto) 0.0 0.0 Immature Gran # (Auto) 0.02 H 0.02 H Absolute Nucleated RBC 0.00 0.00 Immature Gran % 0 0 Nucleated RBC % 0 0 PT 10.2 10.9 INR 0.9 1.0 APTT 20.5 L Sodium 143 141 Potassium 3.4 4.0 D Chloride 106 106 Carbon Dioxide 27.1 25.5 Anion Gap 10 10 BUN 9 6 L Creatinine 0.8 0.7 Estim Creat Clear Calc 100.3 113.1 eGFR > 60 > 60 BUN/Creatinine Ratio 11 L 9 L Glucose [address] Glu mg/dL 103 Hemoglobin A1c 5.2 Calculated Osmolality 284 277 Calcium 9.3 8.9 Corrected Calcium 9.3 8.9 Phosphorus 3.4 Magnesium 2.5 2.2 Total Bilirubin 0.3 0.6 AST 17 13 ALT 16 13 Alkaline Phosphatase 78 66 Troponin I < 0.002 < 0.002 Total Protein 7.0 6.2 Albumin 4.6 4.1 D Globulin 2.4 2.1 L Albumin/Globulin Ratio 1.9 2.0 Triglycerides 48 Cholesterol 136 LDL Cholesterol, Calc 51 HDL Cholesterol 75 H Cholesterol/HDL Ratio 1.8 L TSH 1.23 HCG (Qual) Negative Quality Measures Quality Measures VTE prophylaxis (Heparin subcut) Assessment & Plan Assessment Current Active Medications: Generic Name Dose Route Start Last Admin Trade Name Freq PRN Reason Stop Dose Admin Acetaminophen 650 mg 01/11/25 20:43 Acetaminophen 325 Mg Tablet PO 02/10/25 20:42 Q6H PRN Fever >100.4 Acetaminophen 650 mg 01/11/25 20:43 Acetaminophen 325 Mg Tablet PO 02/10/25 20:42 Q6H PRN PAIN SCALE 1-3 (mild Aspirin 81 mg 01/12/25 09:00 01/12/25 08:54 Aspirin Ec 81 Mg Tabec PO 02/11/25 08:59 81 mg QDAY LOREN Administration Atorvastatin Calcium 80 mg 01/11/25 21:15 01/11/25 22:01 Atorvastatin Calcium 20 Mg Tablet PO 02/10/25 21:14 80 mg HS LOREN Administration Heparin Sodium (Porcine) 5,000 unit 01/12/25 09:00 01/12/25 08:54 Heparin Sod Inj 5000 Unit/Ml Vial SC 01/26/25 08:59 5,000 unit Q12HR LOREN Administration Labetalol HCl 10 mg 01/11/25 16:34 Labetalol Inj 5 Mg/Ml Vial 20 Ml IVP Q15M PRN SBP>= 180, DBP >=105 Morphine Sulfate 1 mg 01/11/25 20:43 Morphine Sulf Inj 4 Mg/Ml Vial IVP 01/16/25 20:42 Q4HR PRN PAIN SCALE 7-10 (Severe Ondansetron HCl 4 mg 01/11/25 20:43 Ondansetron Inj 2 Mg/Ml Inj 2 Ml IVP 02/10/25 20:42 Q6H PRN NAUSEA OR VOMITING Protocol Oxycodone/Acetaminophen 1 tab 01/11/25 20:43 Oxycodone/Apap 5/325 Tablet PO 01/16/25 20:42 Q6H PRN PAIN SCALE 4-6 (Moderate Pantoprazole Sodium 40 mg 01/12/25 09:00 01/12/25 08:54 Pantoprazole 40 Mg Tablet PO 02/11/25 08:59 40 mg QDAY LOREN Administration Sennosides 1 tab 01/11/25 20:43 Senna Tablet PO 02/10/25 20:42 QDAY PRN constipation Protocol Plan 44F with no PMH, admitted for acute neurologic symptoms (dizziness, slurred speech, visual disturbance, sensory loss) concerning for acute ischemic stroke vs TIA, declined TNK, imaging without LVO, with incidental 70% L RECONCILIATION SPECIALIST P1 stenosis. Now admitted for stroke work-up and secondary prevention. # TIA #Stroke, ruled out Patient with sudden neurologic symptoms (dizziness, slurred speech, visual disturbance, sensory deficit, mild facial droop) Risk factors including possible undiagnosed hypertension and vaping history. CT: possible subtle L MCA infarct CTA: no LVO, 70% L RECONCILIATION SPECIALIST stenosis NIHSS initially 1 but later with mild facial droop and sensory loss. TNK discussed with neurology but patient declined after counseling. Currently stable on exam with preserved strength but persistent sensory changes and dizziness. Brain MRI with MRA (01/12/2025): Negative for acute hemorrhage, mass effect or midline shift. No acute infarct. No significant carotid stenosis. No cerebral large vessel arterial occlusions. Patient passed swallow eval, diet advanced to routine. Plan: * Admit to Stroke/Telemetry floor * Neurology consulted, appreciate recs * Neuro checks q4h, HOB 30? * ASA 81 mg PO daily (s/p ASA 325 in ED) * Atorvastatin 80 mg nightly * Urine tox pending * TTE with bubble study taken, pending read by senior electronics design engineer * PT/OT * Patient should complete hypercoagulability workup outpatient # Essential hypertension, newly noted BP up to 171/110 on arrival. No prior diagnosis, not on meds. Plan: * Permissive hypertension for first 24h post-stroke * Outpatient follow-up for possible chronic HTN if persistent # Hypokalemia, mild K 3.4 at presentation, corrected to 4.0 on the morning of 01/12 Plan: * Replete with 40 KCl PO to >4.0 * Recheck in AM # Tobacco/vape use Patient vapes regularly but denies cigarette use Plan: * Counseling on cessation * Consider nicotine patch if cravings during hospitalization Health Maintenance Disposition: Pending readout of echo bubble study and neurology clearance for discharge Feeding: Routine Thromboprophylaxis: SQ heparin 5,000 U q12h GI prophylaxis: PPI Code status: Full code This case was discussed with my attending physician, Dr. Rodriguez, and senior resident, Dr Williams Moss. Jhonatan Leyva, DO PGY I
[2025-01-12 18:29] LABS: Collection Type, Urine Clean Catch
[2025-01-12 18:47] LABS: Bacteria,Urine Rare; Bilirubin,Urine Negative (Negative); Blood,Urine Negative (Negative); Budding Yeast,Urine Present; Clarity,Urine Turbid (Clear/Hazy); Color,Urine Lt-Yellow (Lt Yel-Yel); Culture Indicated,Urine Yes; Glucose, Urine Negative (Negative); Ketones,Urine Negative (Negative); Leukocyte Esterase,Urine Negative (Negative); Nitrite,Urine Positive (Negative); PH,Urine 7.0 (5.0-7.0); Protein,Urine Negative (Neg - Trace); RBC,Urine 2 /hpf (0-3); Specific Gravity,Urine 1.024 (1.001-1.035); Squamous Epithelial Cell,Urine 8 /hpf (0-5); Urobilinogen,Urine Negative mg/dL (0.0-1.0); WBC,Urine 8 /hpf (0-5)
[2025-01-12 19:18] LABS: Amphetamine/Methamp Scrn,U Positive (Negative); Barbiturate Screen,Urine Negative (Negative); Benzodiazepines Screen,Urine Negative (Negative); Benzoylecgonine Screen, Ur Negative (Negative); Fentanyl Screen,Urine Positive (Negative); Opiate Screen,Urine Negative (Negative); THC Screen,Urine Positive (Negative)
[2025-01-13] VITALS: BP 143/94; PULSE 80; PULSE 82; RESP 16; TEMP 36.1; O2SAT 98
[2025-01-13 04:00] VITALS: BP 137/83; PULSE 78; PULSE 83; RESP 16; TEMP 36.2; O2SAT 98
[2025-01-13 06:23] LABS: Basophils # (Auto) 0.0 Thou/mm3 (0.0-0.2); Basophils % (Auto) 0 % (0-2.5); Eosinophils # (Auto) 0.1 Thou/mm3 (0.0-0.5); Eosinophils % (Auto) 2 % (0-10); Hematocrit 41.3 % (36.0-46.0); Hemoglobin 13.2 g/dL (12.0-16.0); Immature Granulocytes Auto 0.01 Thou/mm3 (0.00-0.00); Lymphocytes # (Auto) 2.5 Thou/mm3 (1.0-4.8); Lymphocytes % (Auto) 37 % (10-50); Mean Corpuscular HGB Conc 32.0 g/dl (31.0-37.0); Mean Corpuscular Hemoglobin 28.0 pg (25.0-35.0); Mean Corpuscular Volume 88 fL (80-100); Monocytes # (Auto) 0.4 Thou/mm3 (0.0-0.8); Monocytes % (Auto) 6 % (0-12); Neutrophils # (Auto) 3.8 Thou/mm3 (1.8-7.7); Neutrophils % (Auto) 55 % (37-80); Nucleated Red Blood Cell # 0.00 Thou/mm3 (0.00-0.00); Nucleated Red Blood Cell % 0 /100 WBC (0); Platelet Count 356 Thou/mm3 (140-440); RDW Standard Deviation 47.4 fL (36.4-46.3); Red Blood Count 4.72 Miln/mm3 (4.00-5.20); White Blood Count 6.8 Thou/mm3 (3.6-11.0)
[2025-01-13 06:45] LABS: Alanine Aminotransferase 13 U/L (10-49); Albumin, Serum 4.1 gm/dL (3.5-5.0); Albumin/Globulin Ratio 1.9 (1.2-2.2); Alkaline Phosphatase 72 U/L (46-116); Anion Gap 10 (7-16); Aspartate Amino Transferase 12 U/L (0-34); BUN/Creatinine Ratio 10 Ratio (12-20); Bilirubin,Total 0.4 mg/dL (0.3-1.2); Blood Urea Nitrogen 6 mg/dL (9-23); Calcium 8.7 mg/dL (8.3-10.6); Calcium (Corrected) 8.7 mg/dL (8.5-10.1); Carbon Dioxide 25.3 mMol/L (20.0-31.0); Chloride 104 mMol/L (98-107); Creatinine (Component) 0.6 mg/dL (0.6-1.3); Estimated Creatinine Clearance 131.9 mL/min (>60); Globulin 2.2 gm/dL (2.3-3.5); Glucose 84 mg/dL (74-106); Magnesium 2.0 mg/dL (1.6-2.6); Osmolality,Calculated 274 (275-295); Phosphorous 3.2 mg/dL (2.4-5.1); Potassium 4.0 mMol/L (3.4-5.1); Sodium 139 mMol/L (136-145); Total Protein 6.3 gm/dL (5.7-8.2); eGFR > 60 See Note
[2025-01-13 07:10] VITALS: PULSE 85; RESP 100; RESP 16
[2025-01-13 08:00] VITALS: BP 136/94; PULSE 65; PULSE 77; RESP 18; TEMP 36.4; O2SAT 98
[2025-01-13] MEDS: HEPARIN SOD INJ 5000 UNIT/ML VIAL SC (08:48)
[2025-01-13] MEDS: PANTOPRAZOLE 40 MG TABLET PO (08:50)
[2025-01-13 09:00] VITALS: PULSE 65; RESP 17; RESP 98
--- NOTE | 2025-01-13 12:17 | PC.NURSE ---
Patient left the facility without signing discharge paperwork. last seen at 1130. 20G IV catheter was later found in the restroom trash can. Charge nurse notified and contacted Heidi (patient's POC). Patient called but did not answer. Martir clark initiated and subsequently cleared.
--- NOTE | 2025-01-13 12:19 | PC.SS ---
update: Patient left AMA. I.v. taken out by patient. Patient's contact# [phone] Patient tox report was positive for meth. No PCP. Mother, Jessica armas medical decision maker @ [phone]
--- NOTE | 2025-01-13 14:40 | ESDS_ITS ---
<Statement entered by Brandi Shook DO - 01/14/25 08:17> I, Brandi Shook DO, attest that I was physically present for the abrams portions of the service and evaluated the patient with the resident and I reviewed and discussed the case with the resident and agree with the resident's findings and plans of care as documented above <Statement entered by Norman Kramer MD - 01/13/25 18:28> Note reviewed and agree with care plan as documented. Please refer to the note below for further details. Plan discussed with attending physician Dr. Boone Kramer MD PGY-2 Internal Medicine Planned Discharge Date 01/13/25 DS: Providers Provider Date of admission: 01/11/25 21:03 Primary care physician: Physician Mary Primary/Family Admitting Provider: Korey Franks MD Attending Provider on Admission: Brandi Shook DO Consults: 01/11/25 16:34 Consult to Neurology / Tele-Neurology Routine Comment: Consulting Provider: [facility] 01/11/25 20:44 Consult to Neurology / Tele-Neurology Routine Comment: Consulting Provider: Titus Alatorre PT [Referral Physical Therapy] Routine Comment: Physician Instructions: Referral Speech Therapy Routine Comment: Attending Provider on DC: Brandi Shook DO Discharging Provider: Jhonatan Leyva DO DS: Diagnosis Problem List Completed Was Problem List Reviewed/Reconciled?: Yes Hospital Course Hospital Course Hospital course: Patient is a 44-year-old female with no past medical history who presented to the ED on 01/11/2025 with acute neurologic symptoms including dizziness, slurred speech, visual disturbance, and sensory loss concerning for acute ischemic stroke versus TIA. CT head was notable for 70% stenosis of left MANAGER CHANGE. Neurology was consulted who recommended TNK, but patient declined after discussion. Given aspirin 325 mg, and patient was admitted to the stroke/telemetry for further workup. On 01/12, patient had improved neurologically, visual disturbance and slurred speech had resolved fully, dizziness improved and there was residual sensory loss confined to left upper extremity. MRI completed was negative for acute hemorrhage, mass effect or midline shift or acute infarct. TTE bubble study was negative for PFO. No significant carotid stenosis or cerebral large vessel arterial occlusions. on the morning of 01/13, patient reported no dizziness with equal sensation along both upper extremities. Neurology stated that stroke has been ruled out and symptoms were most like likely attributable to stress. No aspirin or atorvastatin was indicated by neurology. Admission diagnosis: #TIA #Stroke, ruled out #Essential hypertension #Hypokalemia #Tobacco/vape use Discharge instructions: ? Continue taking all other home medications as prescribed ? Follow-up with PCP within 1-2 weeks of discharge ? If you do not have a PCP, you can follow-up at the [facility] (you can call [phone] to make an appointment) ? Return to ED if symptoms worsen or recur This case was discussed with my attending physician, Dr. Shook, and senior resident, Williams Moss. Jhonatan Leyva, DO PGY I Status at Discharge Cognitive/behavioral status at discharge: stable Overall status at discharge: patient is back to baseline Time Spent with Patient Time attestation: Total time spent providing and/or coordinating discharge services: More than 50% of patient's hospital stay Time spent: Greater than 30 minutes Exam Vital Signs Temp Pulse Resp BP Pulse Ox O2 Del Method 97.6 F 65 17 136/94 H 98 Room Air 01/13/25 08:00 01/13/25 09:00 01/13/25 09:00 01/13/25 08:00 01/13/25 08:00 01/13/25 08:00 Narrative Exam General: Alert and oriented x3, No apparent distress. Skin: Intact, Warm, no rashes. HEENT: Normocephalic, Atraumatic. Normal neck range of motion, Supple. Trachea midline. Respiratory: Lungs are clear to auscultation, Breath sounds are equal bilaterally with equal chest expansion. Cardiovascular: RRR, normal S1, S2, No murmurs. Distal pulses 2+ Abdomen: Abdomen soft, non-distended, without erythema, or lesions. Normotensive bowel sounds x4. Percussion tympanic. Palpation nontender in all four quadrants. No organomagely. No guarding or rebound present. Musculoskeletal/Extremities: No erythema, swelling, tenderness of any joints. No edema of BLE. DP pulses +2/3 b/l. Full active ROM of all four extremities. Neurologic: NEURO: Oriented x3, cranial nerves II to XII grossly intact. Cerebellar exam ([id number], [id number]) intact. Muscle strength 5/5 on UE and LE b/l, Moves extremities x4. Sensation intact to gross touch along C6-T1 and L2-S1 dermatomes. No focal neurologic deficits noted Psych: Thoughts linear and responses appropriate. Discharge Plan Plan Patient Disposition: HOME (Self Care) Patient condition on transfer: Stable Care Plan Goals: ? Continue taking all other home medications as prescribed ? Follow-up with PCP within 1-2 weeks of discharge ? If you do not have a PCP, you can follow-up at the [facility] (you can call [phone] to make an appointment) ? Return to ED if symptoms worsen or recur Prescriptions/Referrals Referrals: No Primary/Family,Physician [Primary Care Provider] Patient/Caregiver Discharge Instructions Print Language: Maori Stand Alone Forms: [facility] Award Info., Patient Portal Info Letter Discharge Order Discharge Orders: Discharge (Routine); Ordered 01/13/25 Ordered By: Norman Kramer Quality Discharge Quality Measures VTE prophylaxis
--- NOTE | 2025-01-16 23:07 | PD.VPROG1 ---
Telemedicine visit statement This visit was conducted with the use of phone was obtained on 01/13/25 at 2307. Documentation for date of: 01/13/25 Virtual exam Vital Signs Temp Pulse Resp BP Pulse Ox O2 Del Method 97.6 F 65 17 136/94 H 98 Room Air 01/13/25 08:00 01/13/25 09:00 01/13/25 09:00 01/13/25 08:00 01/13/25 08:00 01/13/25 08:00 Objective Labs 01/13/25 04:59 01/13/25 04:59
== END 2025-01-13 12:00 | disposition home or self-care (01) | DRG 47 ==
LOC: SERX 20:07 → SERHOLD 21:08 → S2NX 22:52 → S3SX 01-12 22:33
PROVIDERS: Nurse Practitioner Family; Admitting Provider Internal Medicine; Emergency Provider Emergency Medicine; Visit Provider Internal Medicine
DX: G45.9 Transient cerebral ischemic attack, unspecified (principal); R47.81 Slurred speech; R29.810 Facial weakness; I10 Essential (primary) hypertension; E87.6 Hypokalemia; F17.290 Nicotine dependence, other tobacco product, uncomplicated; R29.701 NIHSS score 1; Z79.82 Long term (current) use of aspirin; Z79.899 Other long term (current) drug therapy; Z98.891 History of uterine scar from previous surgery; I66.22 Occlusion and stenosis of left posterior cerebral artery
CPT/HCPCS: 36415; 70450; 70496; 70498; 70553; 71045; 80053; 80061; 80307; 81001; 83036; 83735; 84100; 84443; 84484; 84703; 85025; 85610; 85730; 87077; 87086; 87186; 92610; 93005; 93225; 93306; 96360; 96361; 97161; 99285; A4649; A9577; J1644; J7030; Q9967; A9270